=== PATIENT | male | born 1975 | race African-American/Black ===

== ENCOUNTER 2019-01-03 22:24 | Emergency (ER) | payer OTHER ==
[~2019-01-03] VITALS: Ht 167.6 cm; Wt 61.2 kg
[2019-01-03 22:29] VITALS: BP 172/84
== END 2019-01-03 23:25 | disposition home or self-care (01) ==
LOC: ER 22:24
DX: S02.5XXA Fracture of tooth (traumatic), initial encounter for closed fracture (principal); X58.XXXA Exposure to other specified factors, initial encounter; Y93.89 Activity, other specified; Y92.89 Other specified places as the place of occurrence of the external cause; Y99.8 Other external cause status

== ENCOUNTER 2019-01-06 01:13 | Emergency (ER) | payer OTHER ==
[~2019-01-06] VITALS: Ht 167.6 cm; Wt 61.2 kg
[2019-01-06] MEDS ORDERED: PENICILLIN V P500 MG PO (01:24)
[2019-01-06 01:34] VITALS: BP 118/85
== END 2019-01-06 01:34 | disposition home or self-care (01) ==
LOC: ER 01:13
DX: S02.5XXA Fracture of tooth (traumatic), initial encounter for closed fracture (principal); X58.XXXA Exposure to other specified factors, initial encounter; Y92.89 Other specified places as the place of occurrence of the external cause; Y93.89 Activity, other specified; Y99.8 Other external cause status